=== PATIENT | female | born 1965 | race African-American/Black ===

== ENCOUNTER 2024-11-12 10:37 | Outpatient (CLI) | payer OTHER, SELFPAY ==
--- NOTE | ~2024-11-12 | MM_ITS ---
EXAMINATION: MM diagnostic francia BI w haseeb HISTORY: Bilateral rest pain TECHNIQUE: 3-D tomosynthesis images of the breasts were performed and synthetic 2-D images were gener ated. CAD analysis was submitted and interpreted. COMPARISON: 03/13/2014, 02/23/2014 BREAST PARENCHYMAL COMPOSITION:Not Dense. There are scattered areas of fibroglandular density. FINDINGS: No mass lesion or distortion seen in either breast. No suspicious microcalcifications. IMPRESSION: No mammographic evidence for malignancy. BI-RADS Category 1: Negative Reviewed, dictated and finalized at location . [employer]OCK[employer] REPAIRER
--- OUTSIDE RECORDS SUMMARY | 2024-11-12 12:06 | XMS_ITS | Encounter Summary ---
Author Organization [facility] Facility Care Team Providers Care Track And Field Coach Name Role Phone Sonya Pandya MD Primary Care Provider [phone] Tim Wayne MD Primary Care Provider [phone] Abe Cruz Primary Care Provider [phone] Encounter Details Date Type Department Care Team (Latest Contact Info) Description 08/03/2015 Orders Only [facility] CLINCONV ProviderBeth MD [address] [place] [address] Social History Tobacco Use Types Packs/Day Years Used Date Smoking Tobacco: Never Assessed Comments Unknown Sex and Gender Information Value Date Recorded Sex Assigned at Not on file Legal Sex Female 3:39 AM PHARMACOLOGY TEACHER Gender Identity Not on file Sexual Orientation Not on file documented as of this encounter Plan of Treatment Not on file documented as of this encounter Procedures Procedure Name Priority Date/Time Associated Diagnosis Comments PROCEDURE - RESULT 08/09/2015 12 :00 AM PHARMACOLOGY TEACHER documented in this encounter Results * PROCEDURE - RESULT (08/09/2015 12:00 AM PHARMACOLOGY TEACHER) Narrative 08/09/2015 12:00 AM PHARMACOLOGY TEACHER Ordered by an unspecified provider. Historical Provider Final Res ult documented in this encounter Visit Diagnoses Not on filedocumented in this encounter Care Teams Track And Field Coach Relationship Specialty Start Date End Date Sonya Pandya MD [address] [place] [address] [address] [address] PCP - General 04/14/15 10/21/19 Tim Wayne MD [address] [place], [place] [address] [place] [address] PCP - General Family Medicine 10/22/19 06/14/22 Abe Crzu PA [address] [place], [place] [address] [place] [address] PCP - General Family Medicine 06/15/22 documented as of this encounter
--- OUTSIDE RECORDS SUMMARY | 2024-11-12 12:06 | XMS_ITS | Encounter Summary ---
Author Organization [facility] Facility Care Team Providers Care Educational Guidance Counselor Name Role Phone Sonya Pandya MD Primary Care Provider [phone] Tim Wayne MD Primary Care Provider [phone] Abe Cruz Primary Care Provider [phone] Encounter Details Date Type Department Care Team (Latest Contact Info) Description 06/19/2014 Orders Only [facility] CLINCONV ProviderBeth MD [address] [place] [address] Social History Tobacco Use Types Packs/Day Years Used Date Smoking Tobacco: Never Assessed Comments Unknown Sex and Gender Information Value Date Recorded Sex Assigned at Not on file 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 Historical Provider [facility] SONNY SOLIS Final Result documented in this encounter Visit Diagnoses Not on filedocumented in this encounter Care Teams Educational Guidance Counselor Relationship Specialty Start Date End Date Sonya Pandya MD [address] [place] [address] [address] [place] [address] PCP - General 04/14/15 10/21/19 Tim Wayne MD [address] [place], [place] [address] [place] [address] PCP - General Family Medicine 10/22/19 06/14/22 Abe Cruz PA [address] [place], [place] [address] [place] [address] PCP - General Family Medicine 06/15/22 documented as of this encounter
--- OUTSIDE RECORDS SUMMARY | 2024-11-12 12:06 | XMS_ITS | Encounter Summary ---
Author Organization [facility] Facility Care Team Providers Care Form Block Maker Name Role Phone Sonya Pandya MD Primary Care Provider [phone] Tim Wayne MD Primary Care Provider [phone] Abe Cruz Primary Care Provider [phone] Encounter Details Date Type Department Care Team (Latest Contact Info) Description 05/24/2010 Orders Only [facility] CLINCONV ProviderBeth MD [address] [place] [address] Social History Tobacco Use Types Packs/Day Years Used Date Smoking Tobacco: Never Assessed Comments Unknown Sex and Gender Information Value Date Recorded Sex Assigned at Not on file Legal Sex Female 3:39 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
--- OUTSIDE RECORDS SUMMARY | 2024-11-12 12:06 | XMS_ITS | Encounter Summary ---
Author Organization [facility] Facility Care Team Providers Care Manager Flight Name Role Phone Sonya Pandya MD Primary Care Provider [phone] Tim Wayne MD Primary Care Provider [phone] Abe Cruz Primary Care Provider [phone] Encounter Details Date Type Department Care Team (Latest Contact Info) Description 06/12/2014 Orders Only [facility] CLINCONV ProviderBeth MD [address] [place] [address] Social History Tobacco Use Types Packs/Day Years Used Date Smoking Tobacco: Never Assessed Comments Unknown Sex and Gender Information Value Date Recorded Sex Assigned at Not on file Legal Sex Female 3:39 AM MAMMOGRAPHY SUPERVISOR Gender Identity Not on file Sexual Orientation [...] on filedocumented in this encounter Care Teams Manager Flight Relationship Specialty Start Date End Date Sonya Pandya MD [address] [place] [address] [address] [place] [address] PCP - General 04/14/15 10/21/19 Tim Wayne MD [address] [place], [place] [address] [place] [address] PCP - General Family Medicine 10/22/19 06/14/22 Abe Cruz PA [address] [place], [place] [address] [place] [address] PCP - General Family Medicine 06/15/22 documented as of this encounter
--- OUTSIDE RECORDS SUMMARY | 2024-11-12 12:06 | XMS_ITS | Clinical Summary ---
Author Organization [place] [id number] [facility] Address [address] [place] [address] Care Team Providers Care Associate Brand Manager Name Role Phone Abe Cruz Primary Care Provider [phone] Allergies Active Allergy Reactions Criticality Noted Date Comments Lisinopril Cough Low 08/02/2015 Penicillins Hives Medium Medications diclofenac DR (VOLTAREN) 75 mg EC tablet Take 1 tablet by mouth 2 (two) times a day 11/20/2022 Active metoprolol XL (TOPROL-XL) 100 mg 24 hr tabletIndications :Essential hypertension TAKE 1 TABLET(100 MG) BY MOUTH DAILY 30 tablet 2 08/20/2024 Active hydroCHLOROthiazi de (HYDRODIURIL) 25 mg tabletIndications :Essential hypertension TAKE 1 TABLET(25 MG) BY MOUTH DAILY 30 tablet 2 08/20/2024 Active Active Problems Problem Noted Date Diagnosed Date Hypercholesterolemia 05/08/2023 Assessment & Plan (07/10/2024 9:47 AM CDT): Chronic historically not at goal Needs to get up to date on labs Assessment & Plan (05/08/2023 1:44 PM CDT): Chronic condition with new diagnosis. Work on diet lifestyle modifications over next 6 months if unable to correct will consider initiation of statin therapy at that point Iron deficiency 05/08/2023 Vitamin D deficiency 10/26/2021 Assessment & Plan (05/08/2023 1:43 PM CDT): Order vitamin-D level 6 months MVP (mitral valve prolapse) 01/16/2018 Sickle cell trait (CMS/HCC) 01/16/2018 Lumbago 03/13/2016 Anemia 01/18/2016 Class 3 severe obesity due t o excess calories with serious comorbidity and body mass index (BMI) of 50.0 to 59.9 in adult 01/18/2016 Assessment & Plan (08/05/2024 2:41 PM ESTATE PLANNING ATTORNEY): Chronic uncontrolled, reduce processed carb/starch, exercise as kenny, whole foods Assessment & Plan (05/08/2023 1:43 PM CDT): Chronic condition causing worsening of hyperlipidemia as well as hypertension Chronic uncontrolled, reduce processed carb/starch, exercise as kenny, whole foods Assessment & Plan (10/26/2021 8:33 AM ESTATE PLANNING ATTORNEY): Chronic condition patient is actively working with diet and exercising routinely she does use the Found[employer] system. Obstructive sleep apnea 01/18/2016 Assessment & Plan (07/10/2024 9:45 AM CDT): Chronic and corrected with cpap. Hypertension 04/14/2015 Overview (12/28/2016): Hypertension Assessment & Plan (07/10/2024 9:48 AM CDT): Chronic not well controlled Has been off medication for several days. Asymptomatic. Assessment & Plan (05/08/2023 1:43 PM CDT): Chronic condition not at goal Continue metoprolol hydrochlorothiazide. Will work with the next 6 months reducing weight improving healthy diet lifestyle modifications if unable to get blood pressure at goal prior to 6 months we will adjust medication at that time. Assessment & Plan (11/01/2022 8:41 AM ESTATE PLANNING ATTORNEY): Chronic and well controlled Continue Metoprolol and hctz. Refill today Assessment & Plan (10/26/2021 8:32 AM ESTATE PLANNING ATTORNEY): Chronic well-controlled continue hydrochlorothiazide metoprolol Encounters Date Type Department Care Team Description 10/17/2024 Telephone [facility] Medical Group Obstetrical Gynecology [address] [facility] [address] [place] [address] Kerline Zheng LPN from Last 3 Months Immunizations Immunization Administration Dates Next Due Influenza, Unspecified 07/10/2024(Deferr ed: Patient decision),11/01/2022(Deferred: Patient Refused),10/26/2021(Deferred: Patient Refused) Pfizer SARS-CoV-2 Monovalent Vaccination (12+ Yrs) PURPLE 10/10/2020 Surgical History Surgery Date Site/Laterality Comments OTHER SURGICAL HISTORY torn cartilage: Arthroscopy knee ENDOMETRIAL ABLATION uterine ablation TUBAL LIGATION KNEE SURGERY Medical History Medical History Date Comments Hx Other Medical 1996 torn cartilage; Comments: WTT 04/15/2015 - Anemia Hypertension Obesity JAYDEN (obstructive sleep apnea) Family History Medical History Relation Name Comments No Known Problems Brother Bleeding Disorder Father Bleeding d isorder - (Added by TW Conv) Cancer Father Family history of malignant neoplasm - (Added by TW Conv) Prostate cancer Father Cancer, pros curtis; Diabetes Mother Family history of diabetes mellitus - (Added by TW Conv) Diabetes type II Mother Diabetes me llitus type 2; Hypertension Mother Family history of hypertension - (Added by TW Conv) No Known Problems Sister No Known Problems Son Breast cancer Neg Hx Relation Name Status Comments Brother Alive Father Mother Alive Sister Alive Son Alive Social History Tobacco Use Types Packs/Day Years Used Date Smoking Tobacco: Never Smokeless Tobacco: Never Tobacco Cessation:Counseling Given: Not Answered Alcohol Use Standard Drinks/Week Comments Yes 1 (1 standard drink = 0.6 oz pur e alcohol) occ AUDIT-C Answer Date Recorded Q1: How often do you have a drink containing alc ohol? 2-4 times a month 07/10/2024 Average Number of Drinks Not on file 024 Frequency of Binge Drinking Not on file 06/18 PHQ-2 Answer Date Recorded PHQ-2 Total Score (If total score is 3 or more points, staff should administer the PHQ-9) 0 07/10/2024 Comments No Sex and Gender Information Value Date Recorded Sex Assigned at Not on file Legal Sex Female 3:39 AM ESTATE PLANNING ATTORNEY Gender Identity Not on file Sexual Orientation Not on file Obstetrics History Para Term AB IAB SAB Ectopic Multiple Livin g Live Births 2 1 1 1 1 1 Date Outcome GA Total Labor Labor/2nd/3rd Weight Sex Type Anes PTL Sagrario A1 A5 Name Clin Term SAB Last Filed Vital Signs Vital Sign Reading Time Taken Comments Blood Pressure 124/72 08/01/2024 9:02 AM ESTATE PLANNING ATTORNEY Pulse 88 08/01/2024 9:02 AM ESTATE PLANNING ATTORNEY Temperature 36.3 C (97.3 F) 11/23/2022 10:47 AM ESTATE PLANNING ATTORNEY Respiratory Rate 18 07/10/2024 8:44 AM CDT Oxygen Saturation 98% 11/23/2022 10:47 AM ESTATE PLANNING ATTORNEY Inhaled Oxygen Concentration - - Weight 139.3 kg (307 lb) 08/01/2024 9:02 AM ESTATE PLANNING ATTORNEY Height 157.5 cm (5' 2 ) 07/22/2024 11:00 AM ESTATE PLANNING ATTORNEY Body Mass Index 56.15 07/22/2024 11:00 AM ESTATE PLANNING ATTORNEY Plan of Treatment Health Maintenance Due Date Last Done Comments Breast Cancer Screening-Mammogram 1967 Colon Cancer Screening-DNA Stool 1967 Hepatitis C Screening 1967 DTaP/Tdap/Td Vaccine (1 - Tdap) 1978 Hepatitis B Screening 1985 Zoster Vaccine (1 of 2) 2017 Influenza Vaccine (#1) 2025 Postp oned from 05/18/2024 (Patient declined, but will receive in the future) Depression Screening 07/10/2025 07/10/2024, 11/01/2022, 10/26/2021 Cervical Cancer Screening 07/22/2025 07/22/2024, 01/2024 Regular Well Visit/Exam 18-64 07/22/2025 07/22/2024, 07/10/2024, 11/01/2022, Additional history exists Covid-19 Vaccine Completed 05/22/2024, , 01/30/2022, Additional history exists Pneumococcal vaccine <65 Aged Out No longer eligible based on patient's age to complete this topic Procedures Procedure Name Priority Date/Time Associated Diagnosis Comments HIGH RISK HPV DNA DETECTION WITH GENOTYPING Routine 07/22/2024 12:02 PM ESTATE PLANNING ATTORNEY Encounter for annual routine gynecological examination from Last 3 Months or Most Recently Relevant to Health Maintenance Results * High Risk HPV DNA Detection with Genotyping (Molecular component) (07/22/2024 12:02 PM ESTATE PLANNING ATTORNEY) HPV HR 16 Not Detected Not Detected [facility] Comment:Testing performed by : [facility], [address] [place]., [address] HPV HR 18 Not Detected Not Detected [facility] Comment:Testing performed by : [facility], [address] [place]., [address] HPV HR Non 16/18 Not Detected Not Detected [facility] Comment: Interpretive Data Nucleic acid amplification for detection of high-risk Human Papilloma virus (HPV) is performed by the Bernardo Amilcar 6800 HPV test. This assay specifically detects HPV-16 and HPV-18 genotypes. The following HPV genotypes are detected as high-risk HPV: HPV-31, 33, 35, ,39, 45, 51, 52, 56, 58, 59, 66, and 68. This assay has been approved by the [place] Food and Drug Administration for detection of HPV in cervical specimens collected by a physician using an endocervical brush/spatula or cervical broom and placed in the ThinPrep Pap Test PreservCyt collection containers. The performance characteristics of this test have been verified by the [facility] Molecular Infectious Disease laboratory. Correlate with separately reported cytology results, as applicable. Interpretive data last revised 23 Testing performed by: [facility], [address] [facility], [address] Endocervical 07/22/2024 12:0 2 PM ESTATE PLANNING ATTORNEY 07/22/2024 9:27 PM ESTATE PLANNING ATTORNEY Narrative FABIO - 07/24/2024 4:02 AM ESTATE PLANNING ATTORNEY Clinical history and diagnosis->209? wnl per pt Number of vials->1 Testing type->Screening Last menstrual period (date if known)->PM us Khadra Piedra FACILITY ASSISTANT LAB BODY FLUIDS AND STOOLS O RDERABLES Final Result FABIO JOSEPH [address] [facility] [place] [address] [facility] from Last 3 Months or Most Recently Relevant to Health Maintenance Insurance [place] [employer] [facility] [id number] [facility] [id number] Advance Directives For more information, please contact: [phone] Documents on File Type Date Recorded Patient Faculty Physician Expl anation ADVANCE DIRECTIVE 08/02/2015 12:00 AM POW ER OF MESH CUTTER FINANCIAL/MEDICAL ADVANCE DIRECTIVE 08/02/2015 12:00 AM SAGRARIO ING WILL Care Teams Associate Brand Manager Relationship Specialty Start Date End Date Abe Cruz PA PCP - General Family Medicine 06/15/22
--- OUTSIDE RECORDS SUMMARY | 2024-11-12 12:06 | XMS_ITS | Encounter Summary ---
Author Organization [facility] Facility Care Team Providers Care Sheet Tailer Name Role Phone Sonya Pandya MD Primary Care Provider [phone] Tim Wayne MD Primary Care Provider [phone] Abe Cruz Primary Care Provider [phone] Encounter Details Date Type Department Care Team (Latest Contact Info) Description 08/02/2015 Orders Only [facility]G CLINCONV ProviderBeth MD [address] [place] [address] Social History Tobacco Use Types Packs/Day Years Used Date Smoking Tobacco: Never Assessed Comments Unknown Sex and Gender Information Value Date Recorded Sex Assigned at Not on file Legal Sex Female 3:39 AM BACK OFFICE MEDICAL ASSISTANT Gender Identity Not on file Sexual Orientation Not on file documented as of this encounter Plan of Treatment Not on file documented as of this encounter Procedures Procedure Name Priority Date/Time Associated Diagnosis Comments SCAN - LABS 08/03/2015 12:00 AM BACK OFFICE MEDICAL ASSISTANT SCAN - LABS 08/03/2015 12:00 AM BACK OFFICE MEDICAL ASSISTANT documented in this encounter Results * SCAN - LABS (08/03/2015 12:00 AM BACK OFFICE MEDICAL ASSISTANT) Narrative 08/03/2015 12:00 AM BACK OFFICE MEDICAL ASSISTANT Ordered by an unspecified provider. Historical Provider Final Res ult * SCAN - LABS (08/03/2015 12:00 AM BACK OFFICE MEDICAL ASSISTANT) Narrative 08/03/2015 12:00 AM BACK OFFICE MEDICAL ASSISTANT Ordered by an unspecified provider. us Historical Provider Final Res ult documented in this encounter Visit Diagnoses Not on filedocumented in this encounter Care Teams Sheet Tailer Relationship Specialty Start Date End Date Sonya Pandya MD [address] [place], [place] [address] [place] [address] PCP - General 04/14/15 10/21/19 Tim Wayne MD [address] [place], [place] [address] [place] [address] PCP - General Family Medicine 10/22/19 06/14/22 Abe Cruz PA [address] [place] [address] [address] [place] [address] PCP - General Family Medicine 06/15/22 documented as of this encounter
--- OUTSIDE RECORDS SUMMARY | 2024-11-12 12:06 | XMS_ITS | Referral Summary ---
Author Organization [address] Address [address] [place] [address] Care Team Providers Care Gravure Press Operator Name Role Phone Abe Cruz Primary Care Provider [phone] Encounters Date Type Department Care Team Description 10/17/2024 Telephone [facility] Medical Group Obstetrical Gynecology [facility] [address] [place] [address] Kerline Zheng LPN from Last 3 Months Allergies Active Allergy Reactions Criticality Noted Date [...] 01/18/2016 Assessment & Plan (08/05/2024 2:41 PM OVEN HEATER HELPER): Chronic uncontrolled, reduce processed carb/starch, exercise as kenny, whole foods Assessment & Plan (05/08/2023 1:43 PM CDT): Chronic condition causing worsening of hyperlipidemia as well as hypertension Chronic uncontrolled, reduce processed carb/starch, exercise as kenny, whole foods Assessment & Plan (10/26/2021 8:33 AM OVEN HEATER HELPER): Chronic condition patient is actively working with diet and exercising routinely she does use the SHADO system. Obstructive sleep apnea 01/18/2016 Assessment & [...] time. Assessment & Plan (11/01/2022 8:41 AM OVEN HEATER HELPER): Chronic and well controlled Continue Metoprolol and hctz. Refill today Assessment & Plan (10/26/2021 8:32 AM OVEN HEATER HELPER): Chronic well-controlled continue hydrochlorothiazide metoprolol Immunizations Immunization Administration Dates Next Due Influenza, Unspecified 07/10/2024(Deferr ed: Patient decision),11/01/2022(Deferred: Patient Refused),10/26/2021(Deferred: Patient Refused) Pfizer SARS-CoV-2 Monovalent Vaccination (12+ Yrs) PURPLE 10/10/2020 Social History Tobacco Use Types Packs/Day Years [...] on file Legal Sex Female 3:39 AM OVEN HEATER HELPER Gender Identity Not on file Sexual Orientation Not on file Last Filed Vital Signs Vital Sign Reading Time Taken Comments Blood Pressure 124/72 08/01/2024 9:02 AM OVEN HEATER HELPER Pulse 88 08/01/2024 9:02 AM OVEN HEATER HELPER Temperature 36.3 C (97.3 F) 11/23/2022 10:47 AM OVEN HEATER HELPER Respiratory Rate 18 07/10/2024 8:44 AM CDT Oxygen Saturation 98% 11/23/2022 10:47 AM OVEN HEATER HELPER Inhaled Oxygen Concentration - - Weight 139.3 kg (307 lb) 08/01/2024 9:02 AM OVEN HEATER HELPER Height 157.5 cm (5' 2 ) 07/22/2024 11:00 AM OVEN HEATER HELPER Body Mass Index 56.15 07/22/2024 11:00 AM OVEN HEATER HELPER Plan of Treatment Not on file Procedures Procedure Name Priority Date/Time Associated Diagnosis Comments HIGH RISK HPV DNA DETECTION WITH GENOTYPING Routine 07/22/2024 12:02 PM OVEN HEATER HELPER Encounter for annual routine gynecological examination from Last 3 Months or Most Recently Relevant to Health Maintenance Results * High Risk HPV DNA Detection with Genotyping (Molecular component) (07/22/2024 12:02 PM OVEN HEATER HELPER) HPV HR 16 Not Detected Not Detected [facility] Comment:Testing performed by : [facility], [address] [place]., [address] HPV HR 18 Not Detected Not Detected [facility] JOSEPH Comment:Testing performed by : [facility], [address] [place]., [address] HPV HR Non 16/18 Not Detected Not [...] this test have been verified by the [facility] Molecular Infectious Disease laboratory. Correlate with separately reported cytology results, as applicable. Interpretive data last revised 23 Testing performed by: [facility], [address] [place]., [address] Endocervical 07/22/2024 12:0 2 PM OVEN HEATER HELPER 07/22/2024 9:27 PM OVEN HEATER HELPER Narrative FABIO JOSEPH - 07/24/2024 4:02 AM OVEN HEATER HELPER Clinical history and diagnosis->209? wnl per pt Number of vials->1 Testing type->Screening Last menstrual period (date if known)->PM Khadra Piedra PIPELINES LABORER LAB BODY FLUIDS AND STOOLS O RDERABLES Final Result FABIO [address] [facility] Department [place] [address] [facility] from Last 3 Months or Most Recently Relevant to Health Maintenance Insurance [employer] [facility] COUNT INCLUDES THE [facility] [id number] Advance Directives For more information, please contact: [phone] Documents on File Type Date Recorded Patient Nurse Chemical Dependency Expl anation ADVANCE DIRECTIVE 08/02/2015 12:00 AM POW ER OF PATTERN MAKER PROGRAMER FINANCIAL/MEDICAL ADVANCE DIRECTIVE 08/02/2015 12:00 AM JESSICA ING WILL Care Teams Gravure Press Operator Relationship Specialty Start Date End Date Abe Cruz PA PCP - General Family Medicine 06/15/22
== END 2024-11-12 10:38 | disposition home or self-care (01) ==
LOC: ANHIMG 10:40
PROVIDERS: PCP Physician Assistant Medical
DX: N64.4 Mastodynia (principal)
CPT/HCPCS: 77062; 77066; G0279